=== PATIENT | male | born 1980 | race American Indian/Alaskan Native ===

== ENCOUNTER 2020-10-14 10:18 | Outpatient (CLI) | payer OTHER ==
[2020-10-14 11:10] LABS: Blood Urea Nitrogen 13 mg/dL (9-20)
--- NOTE | 2020-10-14 12:20 | Cat Scan Report ---
CT CHEST WITH CONTRAST INDICATION / CLINICAL INFORMATION: Fever, enlarged lymph nodes. TECHNIQUE: Axial CT images were obtained through the chest after IV contrast. All CT scans at this location are performed using CT dose reduction for ALARA by means of automated exposure control. COMPARISON: CT of the chest dated 07/04/2020. FINDINGS: THORACIC AORTA: No significant abnormality. HEART: No significant abnormality. MEDIASTINUM / UMBERTO: Previously seen enlarged prevascular lymph node is resolved. No new or increasing thoracic lymphadenopathy. LUNGS/PLEURA: No acute airspace disease. No pleural effusion or pneumothorax. ADDITIONAL CHEST FINDINGS: None. UPPER ABDOMEN: No significant abnormality. SKELETAL SYSTEM: No significant abnormality. IMPRESSION: 1. No acute findings in the chest. 2. Previously seen enlarged prevascular lymph node is resolved. No new or increasing thoracic lymphad enopathy. Signer Name: Ricky Thomas MD Signed: 10/14/2020 12:15 PM Workstation Name: [id number]
== END 2020-10-14 10:19 | disposition home or self-care (01) ==
LOC: CT 10:18
PROVIDERS: ATTEND Internal Medicine Infectious Disease
DX: R59.0 Localized enlarged lymph nodes (principal); R50.9 Fever, unspecified
CPT/HCPCS: 36415; 71260; 82565; 84520; Q9967